=== PATIENT | female | born 1935 | race Caucasian/White ===

== ENCOUNTER → 2017-03-20 | Day surgery (SDC) | payer OTHER ==
[~2017-03-20] MED LIST: LIDOCAINE 2%/EPINEPHrine PF 1:200,000 20ML SDV ONE; ONDANSETRON HCL 4 MG/2 ML VIAL IV PUSH ONE; PROPOFOL 500 MG/50 ML BTL IV ONE; SODIUM CHLOR 0.9% 250 ML BAG IV ONE; SODIUM CHLORIDE 0.9% 100 ML BAG IV ONE; ceFAZolin INJ 1,000 MG VIAL ONE
--- NOTE | 2017-03-22 08:18 | MP ---
cc: ANDREW DENNY M.D. DATE OF SURGERY 03/20/2017 PREOPERATIVE DIAGNOSIS Left carpal tunnel syndrome. POSTOPERATIVE DIAGNOSIS Left carpal tunnel syndrome. PROCEDURE Left carpal tunnel release. ANESTHETIC TIVA and local. SURGEON Andrew Denny MD ESTIMATED BLOOD LOSS Minimal. DRAINS None. SPECIMEN None. COMPLICATIONS None known. INDICATION Radha Holman is an 81-year-old female with EMG proven carpal tunnel syndrome. She now presents for surgical release. The risks and benefits were thoroughly discussed and no guarantees regarding the result were given. PROCEDURE The patient was brought to the operating room. The left upper extremity draped and prepped in the usual sterile fashion. The patient was placed under IV anesthesia. The time-out was completed. Incision was made in line with the thenar crease and this was taken through subcutaneous tissue down to the fascial layer which was sharply divided and then scissors were used distally and then with a [place] elevator between the nerve and the fascia and direct visualization we proceeded to dissect upwards releasing the transverse carpal ligament until it was completely released and we confirmed this with digital palpation. We let the tourniquet down. We had very good hemostasis. We then proceeded to close with 4-0 Monocryl and Steri-Strips on the skin. Sterile dressing was applied. Neeraj wrap applied. The patient was awoken and returned to the recovery room in stable condition. MD MANFRED Pope/GURPREET /10:33 AM /8:09 AM
== END | disposition home or self-care (01) ==
LOC: ESDC 08:58
PROVIDERS: ATTEND Orthopaedic Surgery Sports Medicine
DX: G56.02 Carpal tunnel syndrome, left upper limb (principal)
CPT/HCPCS: 01810; 64721; J0690; J2405; J3010; J7050